=== PATIENT | female | born 1975 | race Caucasian/White ===

== ENCOUNTER 2017-08-30 10:21 | Day surgery (SDC) | payer OTHER ==
[~2017-08-30] VITALS: Ht 165.1 cm; Wt 97.7 kg
[2017-08-30] MEDS ORDERED: SODIUM CHLORIDE 0.9% 1,000 ML IV ONE (10:32)
[2017-08-30 10:52] VITALS: BP 127/88
[2017-08-30] MEDS ORDERED: PLEASE ENTER HEIGHT AND WEIGHT MC SCH (11:00)
[2017-08-30 11:06] LABS: HEMOGLOBIN 9.3 g/dL (11.7-16.4); WHITE BLOOD COUNT 9.4 x10^3/uL (3.4-10)
[2017-08-30] MEDS ORDERED: LISI-167 PO (11:09)
[2017-08-30] MEDS ORDERED: [UNRECOGNIZED DRUG - CODE] PO (11:09)
[2017-08-30] MEDS ORDERED: ESCI20TA10 PO (11:09)
[2017-08-30] MEDS ORDERED: ATOR40TA PO (11:09)
[2017-08-30] MEDS ORDERED: TIZA4TAB PO (11:09)
[2017-08-30] MEDS ORDERED: GABA300C10 PO (11:09)
[2017-08-30] MEDS ORDERED: LEVO25TA4 PO (11:10)
[2017-08-30] MEDS ORDERED: MIDAZOLAM 1 MG/ML, 5ML ONE (11:13)
[2017-08-30] MEDS ORDERED: FENTANYL PF 100 MCG/2ML ONE ×2 (11:13→12:22)
[2017-08-30] MEDS ORDERED: VERAPAMIL 2.5 MG/ML, 2ML ONE (11:13)
[2017-08-30] MEDS ORDERED: DIPHENHYDRAMINE 50 MG/ML, 1ML ONE (11:14)
[2017-08-30] MEDS ORDERED: HEPARIN 1,000 UNITS/ML, 10ML ONE (11:14)
[2017-08-30] MEDS ORDERED: LIDOCAINE 2%, 20ML ONE (11:14)
[2017-08-30] MEDS ORDERED: NITROGLYCERIN 5 MG/ML, 10ML ONE (11:17)
[2017-08-30 11:19] LABS: BLOOD UREA NITROGEN 4 mg/dL (7-18)
[2017-08-30] MEDS ORDERED: SODIUM CHLORIDE 0.9% 1,000 ML IV SCH (12:22)
== END 2017-08-30 16:06 ==
LOC: CACL 10:21
PROVIDERS: ATTEND Internal Medicine Cardiovascular Disease
DX: R07.89 Other chest pain (principal); I12.9 Hypertensive chronic kidney disease with stage 1 through stage 4 chronic kidney disease, or unspecified chronic kidney disease; N18.4 Chronic kidney disease, stage 4 (severe); F17.210 Nicotine dependence, cigarettes, uncomplicated; E78.5 Hyperlipidemia, unspecified; Z88.1 Allergy status to other antibiotic agents; Z88.0 Allergy status to penicillin
CPT/HCPCS: 36415; 80048; 84703; 85025; 93458; 99156; 99157; C1760; C1769; C1894; J1200; J1644; J2250; J3010; J3490; Q9967